=== PATIENT | female | born 1995 | race Caucasian/White ===

== ENCOUNTER 2018-08-30 12:22 | Emergency (ER) | payer OTHER ==
[2018-08-30 12:31] VITALS: BP 128/82
--- NOTE | 2018-08-30 12:41 | EDPHY ---
H & P Stated Complaint: R rib pain, decreased O2 sat Time Seen by Provider: 08/30/18 12:27 HPI/ROS: CHIEF COMPLAINT: Right posterior rib pain HISTORY OF PRESENT ILLNESS: 22-year-old female arrives via ambulance from her Urgent Care. 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 As she has been complaining of continued pain. She went to an urgent care for an x-ray this morning however had low saturations and was transferred to the ER. She has had no complaints of dyspnea. No urinary discoloration such as hematuria or cola colored urine, denies abdominal pain , denies right upper quadrant pain. REVIEW OF SYSTEMS: 10 systems reviewed and negative with the exception of the elements mentioned in the history of present illness PAST MEDICAL/SURGICAL HISTORY: no anticoagulant use, no relevant medical/ surgical history SOCIAL HISTORY: denies alcohol use at time of incident PHYSICAL EXAM 1) GENERAL: Well-developed, well-nourished, alert and oriented. Appears to be in no acute distress. Answering questions appropriately. 2) HEAD: Normocephalic, atraumatic 3) HEENT: Pupils equal, round, reactive to light bilaterally. 4) NECK: No cervical collar is on. Posterior cervical spine is nontender, no stepoff, no effusion. Full range of motion which does not elicit any midline cervical spine pain, no posterior midline tenderness, no step-off. 5) LUNGS: Clear to auscultation bilaterally, no wheezes, no rhonchi, no retractions. No obvious signs of trauma. No chest wall pain. No flaring, no grunting. Moving symmetrically. No crepitus. 6) HEART: [Regular rate and rhythm, 7) ABDOMEN: No guarding, no rebound, no focal tenderness, no peritoneal signs, no signs of trauma, no ecchymosis , specifically, no right upper quadrant pain 8) MUSCULOSKELETAL: Moving all extremities, no focal areas of tenderness, no obvious trauma. 9) BACK: Tender to palpation approximately 11th rib posterior axillary line on the right. No crepitus. No CVA tenderness. No midline vertebral tenderness, no fluctuance, no step-off, no obvious trauma, no visual or palpable abnormality. 10) SKIN: No laceration. No abrasion DIFFERENTIAL DIAGNOSIS: In no particular order including but not limited to fracture, contusion, pneumothorax, hemothorax, renal contusion, renal fracture, liver fracture, liver contusion - Personal History Current Tetanus Diphtheria and Acellular Pertussis (TDAP): Yes - Medical/Surgical History Hx Asthma: No Hx Chronic Respiratory Disease: No Hx Diabetes: No Hx Cardiac Disease: No Hx Renal Disease: No Hx Cirrhosis: No Hx Alcoholism: No Hx HIV/AIDS: No Hx Splenectomy or Spleen Trauma: No - Social History Smoking Status: Never smoked Constitutional: Initial Vital Signs Temperature (C) 36.8 C 08/30/18 12:28 Heart Rate 72 08/30/18 12:28 Respiratory Rate 16 08/30/18 12:28 Blood Pressure 128/82 H 08/30/18 12:28 O2 Sat (%) 99 08/30/18 12:28 O2 Delivery Mode Room Air ED Images - Female Images Womans Torso Front/Back: 1 - Tender to palpation Medical Decision Making - Diagnostics Imaging Results: Imaging Impressions Ribs w/Chest X-Ray 08/30/18 12:32 Impression: 1. No evidence for acute cardiopulmonary abnormality. 2. No evidence for right rib fracture. Images reviewed myself ED Course/Re-evaluation: I think that renal , hepatic injury is less than likely this patient as she was injured 5 days ago and has no complaints of abdominal pain, no urinary abnormality, no CVA tenderness. X-ray interpreted by staff radiologist with images reviewed myself showing no definitive fracture, pneumothorax or hemothorax. At this time I do not think that further diagnostic studies are indicated. She has been re-evaluated with serial exams was recently at 2:05 p.m. Her abdomen, flank remain nontender. She has been given incentive spirometer. Recommend Tylenol, Motrin for discomfort. Care of patient under supervision of secondary supervising physician Dr Mynor Maria with whom I discussed case. Departure - Departure Disposition: Home, Routine, Self-Care Clinical Impression: Lacrosse, Contusion of rib Condition: Good Instructions: Rib Contusion (ED) Additional Instructions: Use your incentive spirometer every hour while awake. Return to the ER if you develop shortness of breath or worsening pain. Adult Pain & Fever Control: We recommend Acetaminophen (Tylenol) and Ibuprofen (Motrin,Advil) for pain and fever control. When fever is high or pain severe, both drugs can be used at the same time, but at different intervals. Please note the time differences. Your dose is: Acetaminophen 650mg every 4 to 6 hours Ibuprofen 600mg every 6 hours with food OR Note: do not take Acetaminophen with Hydrocodone (Vicodin, Lortab) or Oycodone (Percocet). These medications also contain Acetaminophen. No more than 3000mg of Acetaminophen should be taken in 24 hours (for an adult). Referrals: [facility] [[facility]] - 2-3 days, call for appt.
== END 2018-08-30 14:16 | disposition home or self-care (01) ==
DX: S20.211A Contusion of right front wall of thorax, initial encounter (principal); W21.89XA Striking against or struck by other sports equipment, initial encounter; Y93.65 Activity, lacrosse and field hockey

== ENCOUNTER 2018-09-26 17:08 | Emergency (ER) | payer OTHER ==
--- NOTE | 2018-09-26 18:12 | EDPHY ---
H & P Stated Complaint: SOB, palpitations Time Seen by Provider: 09/26/18 18:01 HPI/ROS: CHIEF COMPLAINT: Dyspnea x3 weeks HISTORY OF PRESENT ILLNESS: 22-year-old generally healthy female complaining of dyspnea for the past 3 weeks. Son occur with exertional activities but does occur when she was arrest feels like she "can't catch my breath". No history of illicit drug or alcohol use. 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 She was seen the ER by myself proximally through ago after she was impacted by lacrosse stick to her ribs, found to have no fractures or pneumothorax at that time. Was given incentive spirometer which he has been using as directed. Today she went to Urgent Care was referred to the ER for further evaluation as she has a non negative perc score, notably, exogenous estrogen use (oral contraceptives). She denies recent illness or cough. Denies flu-like symptoms. Denies syncope or near-syncope. Denies dizziness. REVIEW OF SYSTEMS: 10 systems reviewed and negative with the exception of the elements mentioned in the history of present illness PAST MEDICAL & SURGICAL HISTORY: No pertinent medical or surgical history SOCIAL HISTORY: Nonsmoker. No drug use. 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. FAMILY HISTORY: No family history of VTE, sudden unexplained , premature coronary artery disease PHYSICAL EXAM (Prior to examination, patient consented to physical exam, hands were washed and my usual and customary physical exam procedures followed) 1) GENERAL: Well-developed, well-nourished, alert and oriented. Appears to be in no acute distress. Speaking full sentences no signs of respiratory distress 2) HEAD: Normocephalic, atraumatic 3) HEENT: Pupils equal, round, reactive to light bilaterally. Sclera anicteric. Nasopharynx, oropharynx, clear, no lesions. Moist Mucous membranes. 4) NECK: Full range of motion, no meningeal signs. 5) LUNGS: Clear auscultation bilaterally, no wheezes, no rhonchi, no retractions. 6) HEART: Regular rate and rhythm, no murmur, no heave, no gallop. 7) ABDOMEN: No guarding, no rebound, no focal tenderness, negative McBurney's, negative Tirado's, negative Rovsing's, negative peritoneal sign, negative Homans no palpable cord 8) MUSCULOSKELETAL: Moving all extremities, no focal areas of tenderness, no obvious trauma. No peripheral edema or discoloration. 9) BACK: No CVA tenderness, no midline vertebral tenderness, no fluctuance, no step-off, no obvious trauma, no visual or palpable abnormality. 10) SKIN: No rash, no petechiae. 11) Psychiatric: Patient is oriented X 3, there is no agitation. DIFFERENTIAL DIAGNOSIS: in no particular order including but not limited to pulmonary embolus, pulmonary atelectasis, pulmonary infectious etiology, cardiac dysrhythmia - Personal History Current Tetanus/Diphtheria Vaccine: Yes Current Tetanus Diphtheria and Acellular Pertussis (TDAP): Yes - Medical/Surgical History Hx Asthma: No Hx Chronic Respiratory Disease: No Hx Diabetes: No Hx Cardiac Disease: No Hx Renal Disease: No Hx Cirrhosis: No Hx Alcoholism: No Hx HIV/AIDS: No Hx Splenectomy or Spleen Trauma: No Other PMH: denies - Social History Smoking Status: Never smoked Constitutional: Initial Vital Signs Temperature (C) 36.9 C 09/26/18 17:18 Heart Rate 78 09/26/18 17:18 Respiratory Rate 16 09/26/18 17:18 Blood Pressure 126/77 H 09/26/18 17:18 O2 Sat (%) 99 09/26/18 17:18 O2 Delivery Mode Room Air Allergies/Adverse Reactions: No Known Allergies Allergy (Unverified 09/26/18 17:18) Home Medications: Medication Instructions Recorded NK [No Known Home Meds] 09/26/18 Medical Decision Making ED Course/Re-evaluation: 6:11 p.m.: Patient has a non negative perc score, moderate pretest suspicion for pulmonary embolus. Will obtain D-dimer as well as chest x-ray in laboratory studies and re-evaluated. No signs of respiratory distress at this time. Doubt cardiac etiology given her lack of risk factors, lack of exertional chest pain or dyspnea. Care of patient under supervision of secondary supervising physician Dr Sheriff . 7:27 p.m.: Re-evaluation. D-dimer is negative which I think adequately excludes pulmonary embolus in this patient whom I have a moderate pretest suspicion for pulmonary embolus. At this time I do not think that the benefits of CT imaging outweigh the risks. Discussed with the patient her chest x-ray showed no evidence of pneumothorax, atelectasis or infiltrate. EKG shows sinus rhythm. No evidence of anemia. Think the patient can be discharged safely at this time. Recommend close follow-up. Specific etiology of her subjective dyspnea is incompletely clear. In talking the patient she speaks full sentences and has no visible respiratory distress or dyspnea. She feels comfortable being discharged. Patient feels comfortable being discharged. All questions and concerns addressed by myself. Patient given my usual and customary discharge precautions and instructions regarding their clinical impression. Care of patient under supervision of secondary supervising physician Dr Sheriff . - Data Points Laboratory Results: Laboratory Results 09/26/18 18:15 09/26/18 18:15 09/26/18 09/26/18 09/26/18 18:15 18:15 18:15 WBC RBC Hgb Hct MCV MCH MCHC RDW Plt Count MPV Neut % (Auto) Lymph % (Auto) [place] % (Auto) Eos % (Auto) Baso % (Auto) Nucleat RBC Rel Count Absolute Neuts (auto) Absolute Lymphs (auto) Absolute Monos (auto) Absolute Eos (auto) Absolute Basos (auto) Absolute Nucleated RBC Immature Gran % Immature Gran # D-Dimer 0.28 ug/mLFEU ug/mLFEU (0.00-0.50) Sodium 138 mEq/L mEq/L (135-145) Potassium 3.5 mEq/L mEq/L (3.5-5.2) Chloride 106 mEq/L mEq/L (97-110) Carbon Dioxide 24 mEq/l mEq/l (22-31) Anion Gap 8 mEq/L mEq/L (6-14) BUN 13 mg/dL mg/dL (7-23) Creatinine 0.9 mg/dL mg/dL (0.6-1.0) Estimated GFR > 60 Glucose 110 mg/dL H mg/dL (70-100) Calcium 9.8 mg/dL mg/dL (8.5-10.4) Beta HCG, Qual NEGATIVE 09/26/18 18:15 WBC 8.59 10^3/uL 10^3/uL (3.80-9.50) RBC 5.29 10^6/uL 10^6/uL (4.18-5.33) Hgb 14.0 g/dL g/dL (12.6-16.3) Hct 43.0 % % (38.0-47.0) MCV 81.3 fL L fL (81.5-99.8) MCH 26.5 pg L pg (27.9-34.1) MCHC 32.6 g/dL g/dL (32.4-36.7) RDW 12.6 % % (11.5-15.2) Plt Count 215 10^3/uL 10^3/uL (150-400) MPV 12.3 fL H fL (8.7-11.7) Neut % (Auto) 60.8 % % (39.3-74.2) Lymph % (Auto) 29.7 % % (15.0-45.0) [place] % (Auto) 7.8 % % (4.5-13.0) Eos % (Auto) 1.3 % % (0.6-7.6) Baso % (Auto) 0.3 % % (0.3-1.7) Nucleat RBC Rel Count 0.0 % % (0.0-0.2) Absolute Neuts (auto) 5.22 10^3/uL 10^3/uL (1.70-6.50) Absolute Lymphs (auto) 2.55 10^3/uL 10^3/uL (1.00-3.00) Absolute Monos (auto) 0.67 10^3/uL 10^3/uL (0.30-0.80) Absolute Eos (auto) 0.11 10^3/uL 10^3/uL (0.03-0.40) Absolute Basos (auto) 0.03 10^3/uL 10^3/uL (0.02-0.10) Absolute Nucleated RBC 0.00 10^3/uL 10^3/uL (0-0.01) Immature Gran % 0.1 % % (0.0-1.1) Immature Gran # 0.01 10^3/uL 10^3/uL (0.00-0.10) D-Dimer Sodium Potassium Chloride Carbon Dioxide Anion Gap BUN Creatinine Estimated GFR Glucose Calcium Beta HCG, Qual Departure - Departure Disposition: Home, Routine, Self-Care Clinical Impression: Dyspnea Condition: Good Instructions: Dyspnea (ED) Additional Instructions: Return to the emergency department if you develop new or worsening shortness of breath, if you develop chest pain, if you develop sensation of passing out or any other symptoms that concern you. Referrals: [facility] [[facility]] - 1-2 days without fail
[2018-09-26 18:39] LABS: PLATELET COUNT 215 10^3/uL (150-400)
[2018-09-26 19:19] VITALS: BP 122/77
== END 2018-09-26 19:47 | disposition home or self-care (01) ==
DX: R06.00 Dyspnea, unspecified (principal)